=== PATIENT | male | born 1960 | race Caucasian/White ===

== ENCOUNTER 2025-02-18 19:34 | Emergency (ER) | payer OTHER, SELFPAY ==
[2025-02-18 19:41] VITALS: BP 159/96; PULSE 86; RESP 16; TEMP 36.6; O2SAT 95
--- NOTE | 2025-02-18 20:18 | CRLHL7_ITS ---
For Patients: As a result of the Century Cures Act, medical imaging exams and procedure reports are released immediately into your electronic medical record. You may view this report before your referring provider. If you have questions, please contact your health care provider. INDICATION: Lower abdominal pain. TECHNIQUE: CT abdomen and pelvis acquired with 62 cc Isovue 370 IV contrast. COMPARISON: None. FINDINGS: Lower chest: Unremarkable. Liver: Unremarkable. Gallbladder and bile ducts: Unremarkable. Pancreas: Unremarkable. Spleen: Unremarkable. Adrenal glands: Unremarkable. Kidneys and bladder: Cystectomy with urinary diversion via a right lower quadrant ostomy. Symmetric renal enhancement. No hydronephrosis or hydroureter. No obstructing calculi. GI tract: No bowel obstruction. Moderate colonic stool burden. No suspicious bowel wall thickening. Colonic diverticulosis without acute diverticulitis. No CT evidence of acute appendicitis. Vasculature: Prominent atherosclerotic calcifications of the abdominal aorta and its major branches. No abdominal aortic aneurysm. Grossly patent vasculature. Lymph nodes: No suspicious lymphadenopathy. Peritoneum/Abdominal Wall: No ascites or pneumoperitoneum. Ovoid fluid attenuating lesion along the left pelvic sidewall measuring 1.9 x 1.2 cm (series 2, image 98). No acute abdominal wall abnormality. Bones: No acute abnormality. IMPRESSION: 1. No definite acute intra-abdominal/pelvic pathology identified. 2. Ovoid fluid attenuating lesion along the left pelvic sidewall measuring up to 1.9 cm may represent a loop of small bowel versus indeterminate postoperative fluid collection given presence of numerous surgical clips from presumed prior lymph node dissection. Correlation with any prior intra-abdominal/pelvic imaging recommended to assess for stability. 3. Moderate colonic stool burden. 4. Colonic diverticulosis without acute diverticulitis. Please note that all CT scans at this facility use dose modulation, iterative reconstruction, and/or weight-based dosing when appropriate to reduce radiation dose to as low as reasonably achievable. Dictated by Rolf Burgos MD @ 02/18/2025 10:53:56 PM (Electronically Signed)
--- NOTE | 2025-02-18 20:32 | ED.MALEGU ---
HPI - Male Genitourinary General Date Seen: 02/18/25 Chief complaint: Urogenital Problems, Male Stated complaint: Possible UTI Time Seen by Provider: 02/18/25 19:36 Source: family Mode of arrival: wheelchair History of Present Illness HPI Narrative: Patient is a 64-year-old male with a history of stroke who can answer yes and no questions but nothing further due to residual effect of his stroke presenting to the emergency department with his for concern of UTI. He has a urostomy stoma due to bladder cancer and the removal of his bladder. He has history of UTIs the past his states has not had 1 for a few years. She states today he want her to bring him to the emergency department she states that is unusual for him. She also states he has not been eating or drinking much today and has been showing that he has been having lower abdominal pain. She is concerned he could be having a UTI. Has not had any coughing. Has not been coughing. Denies chest pain, shortness of breath, headache, lightheadedness, dizziness, weakness, numbness, nausea. They are not aware of any sick contacts. Most of the history was from the patient's . Related Data Allergies Allergy/AdvReac Type Severity Reaction Status Date / Time No Known Drug Allergies Allergy Verified 02/18/25 19:47 Review of Systems Status of ROS: Reports: 10 or more systems reviewed and unremarkable except as noted in History and below [facility] Social History Smoking Status: Never smoker Do you use any of these nicotine containing products: None How often do you have a drink containing alcohol: never AUDIT-C Alcohol total score: 0 Non-prescribed substance use: denies use Exam Narrative: Exam Narrative: Const: Well-nourished, Well-developed, in mild distress Eyes: PERRL, no conjunctival injection, and symmetrical lids HENT: Atraumatic external nose and ears. Moist mucous membranes. Bilateral cerumen impaction worse on the right Neck: Symmetric, trachea midline, No thyromegaly. CVS: RRR, No murmurs or gallops. Peripheral pulses 2+ and equal in all extremities RESP: Unlabored respiratory effort. Clear to auscultation bilaterally. GI: Mild discomfort around urostomy stoma and suprapubic region, Nondistended, No rebound or guarding. MSK:Extremities w/o deformity, Normal Active ROM Skin: Warm, Dry. No rashes or lesions. Neuro: Normal Muscle tone, No focal neurological deficits. Const: Vital Signs, click to edit/add: Vital Signs - 24 hr 02/18/25 19:41 Temperature 97.8 F Pulse Rate [Pulse Oximeter] 86 Respiratory Rate 16 Blood Pressure [Ri ght Upper Arm] 159/96 H Pulse Oximetry 95 Oxygen Delivery Me thod Room Air Course Vital Signs Vital signs: Initial Vital Signs Temperature 97.8 F 02/18/25 19:41 Temperature Source Temporal Artery Scan 02/18/25 19:41 Pulse Rate 86 02/18/25 19:41 Respiratory Rate 16 02/18/25 19:41 Blood Pressure 159/96 H 02/18/25 19:41 Blood Pressure Mean 117 H 02/18/25 19:41 Blood Pressure Position Sitting 02/18/25 19:41 Pulse Oximetry 95 02/18/25 19:41 Oxygen Delivery Method Room Air 02/18/25 19:41 Vital Signs Temperature 97.8 F 02/18/25 19:41 Pulse Rate 86 02/18/25 19:41 Respiratory Rate 16 02/18/25 19:41 Blood Pressure 159/96 H 02/18/25 19:41 Pulse Oximetry 95 02/18/25 19:41 Oxygen Delivery Method Room Air 02/18/25 19:41 Temperature 97.8 F 02/18/25 19:41 Pulse Rate 86 02/18/25 19:41 Respiratory Rate 16 02/18/25 19:41 Blood Pressure 159/96 H 02/18/25 19:41 Pulse Oximetry 95 02/18/25 19:41 Oxygen Delivery Method Room Air 02/18/25 19:41 MDM - Male Genitourinary MDM Narrative Medical decision making narrative: Patient is 64-year-old male presenting for possible UTI. Will check a urinalysis here in the emergency department. His believes he is having lower abdominal discomfort and when I asked him it does seem like he is having lower abdominal pain but it is hard to definitively say as he is relatively nonverbal. Due to this will do CT scan of his abdomen pelvis, urinalysis, CBC, CMP. Vital signs are stable at this time. His denies me check his ears as she states he has been complaining about discomfort and they do show quite a bit of cerumen. Nursing staff did remove this. Patient's CBC and CMP showed no concerning abnormalities. Urinalysis does appears to be consistent with a UTI. His is unsure which antibiotics he has been on in the past. I will start him on Keflex for this. Patient will be signed out to my colleague pending CT scan results. Expected disposition at this time is discharged Lab Data Labs: Lab Results 02/18/25 02/18/25 02/18/25 Range/Units 20:17 20:30 20:40 WBC 8.21 (4.50-11.00) K/uL RBC 5.36 (4.30-5.90) m/uL Hgb 16.2 (13.5-17.5) gm/dL Hct 47.9 (37.0-53.0) % MCV 89 (80-100) fL MCH 30 (26-34) pg MCHC 34 (32-36) gm/dL RDW Coeff of [place] 13.6 (11.5-15.5) % Plt Count 287 (140-440) K/uL Neut % (Auto) 82.1 H (42.0-72.0) % Lymph % (Auto) 12.8 L (20-44) % [place] % (Auto) 4.3 (0.0-11.0) % Eos % (Auto) 0.4 (0.0-7.0) % Baso % (Auto) 0.2 (0.0-3.0) % Neut # (Auto) 6.70 (1.7-7.0) K/uL Lymph # (Auto) 1.10 (0.90-2.90) K/uL [place] # (Auto) 0.40 (0.00-0.90) K/UL Eos # (Auto) 0.03 (0.00-0.50) K/uL Baso # (Auto) 0.02 (0.00-0.30) K/uL Abs Immat Gran (auto) 0.02 (0.00-0.30) K/uL Imm/Tot Granulo (auto) 0.2 % Sodium 135 (135-149) mmol/L Potassium 4.0 (3.6-5.1) mmol/L Chloride 104 (96-114) mmol/L Carbon Dioxide 22 (20-32) mmol/L Anion Gap 9 (7-15) mEq/L BUN 20 (7-30) mg/dL Creatinine 0.9 (0.5-1.5) mg/dL Estimated GFR 95 ml/min Glucose 124 H (60-115) mg/dL Calcium 9.6 (8.4-10.6) mg/dL Total Bilirubin 0.6 (0.1-1.5) mg/dL AST 25 (12-35) U/L ALT 20 (4-50) U/L Alkaline Phosphatase 70 (40-150) U/L Total Protein 7.5 (6.0-8.3) g/dL Albumin 4.6 (3.3-5.0) g/dL Urine Color Yellow (Yellow) Urine Appearance Cloudy A (Clear) Urine pH >= 9.0 H (5.0-8.5) Ur Specific [place] 1.015 (1.000-1.030) Urine Protein 2+ A (Negative) Urine Glucose (UA) Negative (Negative) Urine Ketones Negative (Negative) Urine Blood Trace-lysed A (Negative) Urine Nitrite Positive A (Negative) Urine Bilirubin Negative (Negative) Urine Urobilinogen 0.2 (0.2-1.0) Ur Leukocyte Esterase Negative (Negative) Urine RBC 2-5 A (0-2) Urine WBC 2-5 (0-5) Ur Squamous Epith Cells Few (None-Few) Triple Phos Crystals Many A (None) Urine Bacteria Moderate A (None) POC Creatinine 0.9 (0.6-1.3) mg/dl Discharge Plan Discharge Clinical Impression: Urinary tract infection Qualifiers: Urinary tract infection type: site unspecified Hematuria presence: with hematuria Qualified Code(s): N39.0 - Urinary tract infection, site not specified Patient Disposition: Home, Self-Care Condition: Stable Instructions: Urinary Tract Infection in Men (DC) Additional Instructions: 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 Have close follow-up with his primary care provider for this UTI. Return to emergency department for new or worsening symptoms. Follow Up/Referrals: Provider,Not a Local [Primary Care Provider, Family Practice] Stand Alone Forms: [facility] Info Instructions
--- OUTSIDE RECORDS SUMMARY | 2025-02-18 20:35 | XMS_ITS | Clinical Summary ---
Author Organization [facility] Address [address] [place] [id number] Care Team Providers Care Dolly Operator Name Role Phone No Ref-Primary, Physician Primary Care Provider Allergies Active Allergy Reactions Criticality Noted Date Comments Codeine 07/08/2018 itching Medications ketoconazole (NIZORAL) 2 % external creamIndication s:Pain in both feet,Onychomyco sis of toenail,Borderl ine diabetes,Smoker Apply topically daily Apply to affected nails daily 60 g 2 9 Active Social History Tobacco Use Types Packs/Day Years Used Date Smoking Tobacco: Light Smoker Smokeless Tobacco: Never Tobacco Cessation:Counseling Given: Yes Adolescent Education Answer Date Record ed Getting School Help Needed Not on file 02/09 Sex and Gender Information Value Date Recorded Sex Assigned at Not on file Legal 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 Gender Identity Not on file Sexual Orientation Not on file Last Filed Vital Signs Vital Sign Reading Time Taken Comments Blood Pressure 128/66 07/08/2018 1:06 PM DOLLY OPERATOR Pulse - - Temperature - - Respiratory Rate - - Oxygen Saturation - - Inhaled Oxygen Concentration - - Weight 93.4 kg (206 lb) 07/08/2018 1:06 PM DOLLY OPERATOR Height 181.6 cm (5' 11.5) 07/08/2018 1:06 PM CS T Body Mass Index 28.33 07/08/2018 1:06 PM DOLLY OPERATOR Plan of Treatment Not on file [place] [id number] Care Teams Dolly Operator Relationship Specialty Start Date End Date No Ref-Primary, Physician PCP - General 07/03/18
[2025-02-18 20:46] LABS: Appearance Urine Cloudy (Clear)
[2025-02-18 20:52] LABS: Hematocrit* 47.9 % (37.0-53.0); Hemoglobin* 16.2 gm/dL (13.5-17.5); Immature Granulocytes Abs Auto 0.02 K/uL (0.00-0.30); Immature Granulocytes Pct Auto 0.2 %; Mean Corpuscular HGB Conc 34 gm/dL (32-36); Mean Corpuscular Hemoglobin 30 pg (26-34); Mean Corpuscular Volume 89 fL (80-100); RDW Coefficient of Variation % 13.6 % (11.5-15.5); Red Blood Count* 5.36 m/uL (4.30-5.90); White Blood Count* 8.21 K/uL (4.50-11.00)
[2025-02-18 20:56] LABS: Lymphocytes Absolute Auto 1.10 K/uL (0.90-2.90); Slide Review Reflex No
[2025-02-18 20:59] LABS: Creatinine, Point-of-Care* 0.9 mg/dl (0.6-1.3)
[2025-02-18 20:59] LABS: Albumin* 4.6 g/dL (3.3-5.0); Chloride* 104 mmol/L (96-114); Potassium* 4.0 mmol/L (3.6-5.1); Sodium* 135 mmol/L (135-149)
[2025-02-18 21:02] LABS: Alanine Aminotransferase* 20 U/L (4-50); Alkaline Phosphatase* 70 U/L (40-150); Anion Gap 9 mEq/L (7-15); Aspartate Amino Transferase* 25 U/L (12-35); Bilirubin Total* 0.6 mg/dL (0.1-1.5); Blood Urea Nitrogen* 20 mg/dL (7-30); Calcium* 9.6 mg/dL (8.4-10.6); Carbon Dioxide* 22 mmol/L (20-32); Creatinine* 0.9 mg/dL (0.5-1.5); Estimated Glomerular Filt Rate 95 ml/min; Glucose* 124 mg/dL (60-115); Total Protein* 7.5 g/dL (6.0-8.3)
[2025-02-18 22:28] VITALS: BP 160/109; PULSE 96; RESP 18; TEMP 37.6; O2SAT 94
== END 2025-02-18 23:01 | disposition home or self-care (01) ==
PROVIDERS: Emergency Provider Student in an Organized Health Care Education/Training Program
DX: N39.0 Urinary tract infection, site not specified (principal); Z96.0 Presence of urogenital implants; Z85.51 Personal history of malignant neoplasm of bladder; Z90.6 Acquired absence of other parts of urinary tract; Z87.440 Personal history of urinary (tract) infections
CPT/HCPCS: 36415; 74177; 80053; 81001; 82565; 85025; 87086; 99284; 99285; Q9967